=== PATIENT | male | born 1985 | race Caucasian/White ===

== ENCOUNTER 2021-12-12 09:09 | Outpatient (CLI) | payer BC | END 2021-12-12 09:10 | disposition home or self-care (01) | LOC: CSHMRI 09:09 | PROVIDERS: ATTEND Psychiatry & Neurology Neurology | DX: G56.03 Carpal tunnel syndrome, bilateral upper limbs (principal); M54.12 Radiculopathy, cervical region; M47.812 Spondylosis without myelopathy or radiculopathy, cervical region | CPT/HCPCS: 72141 ==